=== PATIENT | female | born 1945 | race Caucasian/White ===

== ENCOUNTER → 2016-11-28 | Outpatient (CLI) | payer MEDICARE, OTHER ==
[~2016-11-28] MED LIST: OMNIPAQUE 350 MG/ML, 75ML BOTTLE ONE
== END | disposition home or self-care (01) ==
LOC: CFH 10:23
PROVIDERS: ATTEND Internal Medicine Critical Care Medicine
DX: R91.8 Other nonspecific abnormal finding of lung field (principal); Z87.891 Personal history of nicotine dependence
CPT/HCPCS: 71260; 82565; Q9967

== ENCOUNTER → 2018-03-01 | Outpatient (CLI) | payer MEDICARE, OTHER | END | disposition home or self-care (01) | LOC: CFH 09:10 | PROVIDERS: ATTEND Internal Medicine Critical Care Medicine | DX: R91.8 Other nonspecific abnormal finding of lung field (principal); I25.10 Atherosclerotic heart disease of native coronary artery without angina pectoris | CPT/HCPCS: 71250 ==

== ENCOUNTER → 2018-06-01 | Outpatient (CLI) | payer MEDICARE, OTHER | END | disposition home or self-care (01) | LOC: CFH 09:37 | PROVIDERS: ATTEND Family Medicine | DX: Z13.820 Encounter for screening for osteoporosis (principal); M85.88 Other specified disorders of bone density and structure, other site | CPT/HCPCS: 77080 ==

== ENCOUNTER 2018-10-25 14:18 | Outpatient (CLI) | payer MEDICARE, OTHER ==
[2018-10-25] MEDS ORDERED: OMNIPAQUE 350 MG/ML, 100ML BOTTLE ONE (15:00)
[2018-10-25 15:24] LABS: CREATININE 0.66 mg/dL (0.55-1.02)
== END 2018-10-25 23:59 | disposition home or self-care (01) ==
LOC: RAD 14:18
PROVIDERS: ATTEND Family Medicine
DX: R65.10 Systemic inflammatory response syndrome (SIRS) of non-infectious origin without acute organ dysfunction (principal); R10.9 Unspecified abdominal pain; M51.36 Other intervertebral disc degeneration, lumbar region; Z90.89 Acquired absence of other organs; Z90.49 Acquired absence of other specified parts of digestive tract
CPT/HCPCS: 36415; 74177; 82565; Q9967

== ENCOUNTER 2018-10-26 12:54 | Day surgery (SDC) | payer MEDICARE, OTHER ==
[~2018-10-26] VITALS: Ht 165.1 cm; Wt 80.2 kg
[2018-10-26] MEDS ORDERED: SODIUM CHLORIDE 0.9% 1,000 ML IV SCH (13:59)
[2018-10-26 14:26] VITALS: BP 109/69
[2018-10-26 14:33] LABS: INTERNATIONAL NORMALIZED RATIO 1.05 (0.93-1.1)
[2018-10-26] MEDS ORDERED: LIDOCAINE-MPF 1%, 5ML ONE (14:43)
[2018-10-26] MEDS ORDERED: FLUMAZENIL 0.1 MG/1 ML, 5ML ONE (15:03)
[2018-10-26] MEDS ORDERED: MIDAZOLAM 1 MG/ML, 5ML ONE ×2 (15:03)
[2018-10-26] MEDS ORDERED: NALOXONE 1 MG/ML, 2ML ONE (15:03)
[2018-10-26] MEDS ORDERED: FENTANYL PF 100 MCG/2ML ONE (15:03)
[2018-10-26] MEDS ORDERED: IBUPROFEN 600 MG TABLET ONE (16:43)
[2018-10-26] MEDS ORDERED: IBUPROFEN 200 MG TABLET PO ONE (17:00)
== END 2018-10-26 18:15 | disposition home or self-care (01) ==
LOC: OUT 12:54 → EDSTATUS 15:00 → OUT 18:15
PROVIDERS: ATTEND Family Medicine
DX: K75.0 Abscess of liver (principal); I10 Essential (primary) hypertension; J44.9 Chronic obstructive pulmonary disease, unspecified; Z79.82 Long term (current) use of aspirin; Z88.0 Allergy status to penicillin; Z87.891 Personal history of nicotine dependence; Z79.01 Long term (current) use of anticoagulants
CPT/HCPCS: 36415; 49405; 75989; 85610; 87070; 87075; 87077; 87102; 87205; 99156; C1729; C1769; J2250; J3010; J7030; 87186; 99157; J2310

== ENCOUNTER → 2020-07-31 | Outpatient (CLI) | payer MEDICARE, OTHER | END | disposition home or self-care (01) | LOC: CFH 13:49 | PROVIDERS: ATTEND Internal Medicine | DX: R91.8 Other nonspecific abnormal finding of lung field (principal); J98.4 Other disorders of lung | CPT/HCPCS: 71250 ==

== ENCOUNTER 2020-10-20 13:13 | Emergency (ER) | payer MEDICARE, OTHER ==
[~2020-10-20] VITALS: Ht 162.6 cm; Wt 88.8 kg
[2020-10-20] MEDS ORDERED: SODIUM CHLORIDE FLUSH 10ML SYR IVF ONE (14:00)
--- NOTE | 2020-10-20 14:05 | NUR ---
CP STARTED "A COUPLE HOURS AGO" ON THE L SIDE. STATES IMPROVED ON ARRIVAL TO ED. PT DENIES HX CARDIAC ISSUES. PT RESTING ON GURNEY. NADN. MONITORS APPLIED. VSS. PIV INITIATED.
[2020-10-20 14:21] LABS: BASOPHILS % (AUTO) 1 % (0-1); EOSINOPHILS % (AUTO) 2 % (1-7); LYMPHOCYTES % (AUTO) 25 % (22-44); MEAN CORPUSCULAR HEMOGLOBIN 28.4 pg (27.0-34.8); MEAN CORPUSCULAR HGB CONC 33.7 g/dL (32.4-35.8); MEAN PLATELET VOLUME 10.2 fL (7.4-10.4); MONOCYTES % (AUTO) 9 % (2-9); NEUTROPHILS % (AUTO) 64 % (42-75); PLATELET COUNT 244 x10^3/uL (130-400); RED CELL DISTRIBUTION WIDTH 12.9 % (9.6-15.2)
[2020-10-20 14:22] LABS: MD NO
[2020-10-20 14:29] LABS: ALANINE AMINOTRANSFERASE 28 U/L (12-78); ALBUMIN 3.8 g/dL (3.4-5.0); ANION GAP 6 mmol/L (5-15); CALCIUM 8.8 mg/dL (8.5-10.1); CHLORIDE 107 mmol/L (98-107); CREATININE 0.99 mg/dL (0.55-1.02)
[2020-10-20 14:32] LABS: ALKALINE PHOSPHATASE 76 U/L (45-117); BILIRUBIN,TOTAL 1.2 mg/dL (0.2-1.0); TROPONIN I < 0.015 ng/mL (0.000-0.045)
[2020-10-20] MEDS ORDERED: ASPIRIN 81 MG TABLET CHEW ONE (14:34)
--- NOTE | 2020-10-20 14:49 | NUR ---
PT CHART REVIEWED AND PLACED FOR RECHECK.
[2020-10-20] MEDS ORDERED: ASPIRIN 81 MG TABLET CHEW PO ONE (15:00)
[2020-10-20 15:10] VITALS: BP 120/57
--- NOTE | 2020-10-20 15:11 | NUR ---
BREAK RN: PT RESTING COMFORTABLY ON GURNEY.
== END 2020-10-20 15:52 | disposition home or self-care (01) ==
LOC: ED 15:45
DX: R07.2 Precordial pain (principal); I10 Essential (primary) hypertension; E11.9 Type 2 diabetes mellitus without complications; R07.89 Other chest pain
CPT/HCPCS: 36415; 71045; 80053; 84484; 85025; 93005; 99285